=== PATIENT | female | born 1970 | race Caucasian/White ===

== ENCOUNTER 2021-12-27 08:18 | Outpatient (CLI) | payer OTHER, SELFPAY ==
[2021-12-27 14:00] LABS: C Reactive Protein* 0.7 mg/dL (0.5-1.0)
== END 2021-12-27 08:19 | disposition home or self-care (01) ==
LOC: LKVREF 08:20
PROVIDERS: PCP Emergency Medicine; Visit Provider Emergency Medicine
DX: R59.9 Enlarged lymph nodes, unspecified (principal)
CPT/HCPCS: 86140

== ENCOUNTER 2022-01-04 09:15 | Outpatient (CLI) | payer OTHER, SELFPAY ==
--- NOTE | 2022-01-04 09:00 | CRLHL7_ITS ---
For Patients: As a result of the Century Cures Act, medical imaging exams and procedure reports are released immediately into your electronic medical record. You may view this report before your referring provider. If you have questions, please contact your health care provider. 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 Please note that all CT scans at this facility use dose modulation, iterative reconstruction, and/or weight-based dosing when appropriate to reduce radiation dose to as low as reasonably achievable. FINDINGS: The CT images demonstrate normal aeration of the mastoid air cells and middle ear cavities. The paranasal sinuses are clear. The nasopharynx appears normal. The parotid and submandibular glands are of normal size and have uniform enhancement. The oropharynx appears normal. The valleculae, epiglottis, aryepiglottic folds and piriform sinuses appear normal. There is a normal appearance of the larynx and subglottic trachea. The thyroid gland is of normal size and has uniform density. There is no evidence of lymphadenopathy within the anterior and posterior cervical triangles or within the supraclavicular region. Minimal degenerative changes are present. Lung apices are clear. IMPRESSION: No evidence of cervical adenopathy. Specifically, there are normal subcentimeter lymph nodes within the right side of the neck involving the anterior and posterior triangles. The largest lymph node is at the jugulodigastric area which measures 6 millimeters in transverse dimension, considered normal. Please note that all CT scans at this facility use dose modulation, iterative reconstruction, and/or weight-based dosing when appropriate to reduce radiation dose to as low as reasonably achievable. Dictated by Gera Landaverde MD @ 01/04/2022 10:26:01 AM (Electronically Signed)
== END 2022-01-04 09:16 | disposition home or self-care (01) ==
LOC: CT 09:15
PROVIDERS: PCP Emergency Medicine; Visit Provider Emergency Medicine
DX: R59.9 Enlarged lymph nodes, unspecified (principal)
CPT/HCPCS: 70490